=== PATIENT | female | born 1970 | race Two or more races ===

== ENCOUNTER 2019-06-05 08:23 | Day surgery (SDC) | payer BC ==
[~2019-06-05] VITALS: Ht 160 cm; Wt 54.4 kg
[2019-06-05] VITALS (8 sets, daily range): BP systolic 122–130; BP diastolic 67–88
[2019-06-05] MEDS ORDERED: SYNTHROID25 MCG ORAL (09:16)
[2019-06-05] MEDS ORDERED: ESTROSTEP FE-21 EACH PO (09:16)
[2019-06-05] MEDS ORDERED: QUETIAPINE FUMA25 MG ORAL (09:16)
[2019-06-05] MEDS ORDERED: CELEXA20 MG ORAL (09:16)
[2019-06-05] MEDS ORDERED: KLONOPIN0.5 MG ORAL (09:16)
--- NOTE | 2019-06-05 09:19 | Pre-Procedure Note/Attestation ---
Pre-Procedure Note/Attestation Complete Prior to Procedure Planned Procedure: not applicable Procedure Narrative: esophagogastroduodenoscopy and colonoscopy Indications for Procedure Pre-Operative Diagnosis: FHX of colon CA, anal fissure ,GERD Attestation I attest that I discussed the nature of the procedure; its benefits; risks and complications; and alternatives (and the risks and benefits of such alternatives ), prior to the procedure, with the patient (or the patient's legal signs and displays sales representative). I attest that, if there was a reasonable possibility of needing a blood transfusion, the patient (or the patient's legal signs and displays sales representative) was given the [facility] standardized written summary, pursuant to the Wily Jaspal Blood Safety Act ([place] Health and Safety Code # 1645, as amended). I attest that I re-evaluated the patient just prior to the surgery and that there has been no change in the patient's H&P, except as documented below: Thomas Varela MD Jun 05, 2019 09:19
--- NOTE | 2019-06-05 09:20 | Short Stay Surgery H&P ---
History of Present Illness History of Present Illness Chief Complaint fhx of colon CA, GERD HPI Maria De Jesus Moreno is a 48 year old female who was admitted on for Gerd And Screening Patient History PAST MEDICAL HISTORY: (1) GERD (gastroesophageal reflux disease) (2) Fibromyalgia Medication History Scheduled Citalopram Hydrobromide* (Celexa*), 20 MG ORAL DAILY, (Reported) Clonazepam* (Klonopin*), 0.5 MG ORAL HS, (Reported) Levothyroxine Sodium* (Synthroid*), 25 MCG ORAL DAILY, (Reported) Noreth A-Et Estra/Fe Fumarate (Estrostep Fe-28 Tablet), 1 EACH PO DAILY, ( Reported) Quetiapine Fumarate* (Seroquel*), 25 MG ORAL DAILY, (Reported) Review of Systems Cardiovascular: Reports: no symptoms Respiratory: Reports: no symptoms Skeletal: Reports: no symptoms Gastrointestinal: Reports: no symptoms Genitourinary: Reports: no symptoms Neurologic: Reports: no symptoms Endocrine: Reports: no symptoms Hematologic: Reports: no symptoms Physical Exam Vital Signs Last Vital Signs Date Time Temp Pulse Resp B/P (MAP) Pulse Ox O2 Delivery O2 Flow Rate FiO2 06/05/19 09:07 97.8 72 18 123/67 100 Room Air Labs Laboratory Tests Test 06/05/19 08:40 Urine HCG, Qualitative Negative (NEGATIVE) Skin: normal HENT: normal Heart: normal Lungs: normal Abdomen: normal Extremities: normal Plan Plan of Care esophagogastroduodenoscopy and colonoscopy Attestation Are the patient's medical conditions optimized for surgery? Attestation Response: yes Thomas Varela MD Jun 05, 2019 09:20
[2019-06-05] MEDS ORDERED: LR 1000ml 1,000 ML IVLG SCH (09:46)
--- NOTE | 2019-06-05 09:48 | Anethesia Preoperative Eval ---
Anesthesia Pre-op PMH/ROS General Date of Evaluation: Jun 05, 2019 Time of Evaluation: 09:41 Anesthesiologist: eder ASA Score: ASA 2 Mallampati Score Class I : Soft palate, uvula, fauces, pillars visible Class II: Soft palate, uvula, fauces visible Class III: Soft palate, base of uvula visible Class IV: Only hard plate visible Mallampati Classification: Class II Surgeon: janel Diagnosis: gerd/colon screening Surgical Procedure: egd/colonoscopy Anesthesia History: none Social History: smoking - nonsmoker Family History: no anesthesia problems Allergies: Coded Allergies: No Known Allergies (Unverified , 06/05/19) Medications: see eMAR Patient NPO?: Yes Past Medical History Endocrine: Reports: hypothyroidism PSxH Narrative: lumbar fusion Anesthesia Pre-op Phys. Exam Physician Exam Last Vital Signs Date Time Temp Pulse Resp B/P (MAP) Pulse Ox O2 Delivery O2 Flow Rate FiO2 06/05/19 09:16 Room Air 06/05/19 09:07 97.8 72 18 123/67 100 Constitutional: NAD Neurologic: CN 2-12 intact Cardiovascular: RRR Respiratory: CTA Gastrointestinal: S/NT/ND Airway Exam Mallampati Score: Class II MO: full Neck: flexible TMD: 2fb Anesthesia Pre-op A/P Labs Urine Test Test 06/05/19 08:40 Urine HCG, Qualitative Negative (NEGATIVE) Risk Assessment & Plan Assessment: asa2 Plan: mac Status Change Before Surgery: No Pre-Antibiotics Drug: Dipti Malone MD Jun 05, 2019 09:48
[2019-06-05] MEDS ORDERED: DiphenhydrAMINE 50mg/ml Inj IVP PRN (10:00)
[2019-06-05] MEDS ORDERED: Propofol 200mg/20ml IV ONE (10:00)
[2019-06-05] MEDS ORDERED: Midazolam 2mg/2ml Inj IVP PRN (10:00)
[2019-06-05] MEDS ORDERED: fentaNYL 100 mcg/2 mL IV PRN (10:00)
[2019-06-05] MEDS ORDERED: LR 1000ml ONE (10:00)
[2019-06-05] MEDS ORDERED: Lidocaine 1% MPF 10mg/ml 5ml ONE (10:00)
[2019-06-05] MEDS ORDERED: Atropine Inj 1mg/10ml Syr IV PRN (10:00)
--- NOTE | 2019-06-05 10:22 | Endoscopy Procedure Note ---
Endoscopy Procedure Note General Indication for Procedure: rectal bleed, GERD, FHX of GI canccers Procedures Performed: EGD, colonoscopy Operative Findings/Diagnosis: gastritis, one colon polyp Specimen: yes Pt Tolerated Procedure Well: Yes Estimated Blood Loss: none Anesthesia Anesthesiologist: sandhya Anesthesia: MAC Inserted Devices Implant(s) used?: No Quality Quality of Bowel Preparation: Good Did scope reach the cecum?: Yes Was there any complications?: No GI Core Measures 50 yrs or older w/o bx or poly: No 10yrs. F/U recommended: Yes If not recommended, why?: Above average risk 18 years or older w/prev. colo: No Thomas Varela MD Jun 05, 2019 10:21
--- NOTE | 2019-06-05 13:19 | Immediate Post-Op Evaluation ---
Immediate Post-Op Evalulation Immediate Post-Op Evalulation Procedure: egd/colonoscopy w/bx Date of Evaluation: Jun 05, 2019 Time of Evaluation: 10:37 IV Fluids: 300ml lr Blood Products: none Estimated Blood Loss: negligible Blood Pressure Systolic: 130 Blood Pressure Diastolic: 80 Pulse Rate: 71 Respiratory Rate: 18 O2 Sat by Pulse Oximetry: 99 Temperature (Fahrenheit): 97.7 Pain Score (1-10): 0 Nausea: No Vomiting: No Complications none Patient Status: awake, reacts, patent Hydration Status: adequate Drug: Dipti Malone MD Jun 05, 2019 13:19
--- NOTE | 2019-06-05 13:20 | 48 Hour Post Anesthesia Eval ---
Post Anesthesia Evaluation Procedure: egd/colonoscopy w/bx Date of Evaluation: Jun 05, 2019 Time of Evaluation: 10:39 Blood Pressure Systolic: 122 0: 88 Pulse Rate: 65 Respiratory Rate: 18 Temperature (Fahrenheit): 97.7 O2 Sat by Pulse Oximetry: 99 Airway: patent Nausea: No Vomiting: No Pain Intensity: 0 Hydration Status: adequate Cardiopulmonary Status: stable Mental Status/LOC: patient returned to baseline Post-Anesthesia Complications: none Follow-up care needed: N/A Dipti Silverio MD Jun 05, 2019 13:20
--- NOTE | 2019-06-05 16:00 | Procedure Note ---
DATE OF PROCEDURE: 06/05/2019 SURGEON: Thomas Varela M.D. PROCEDURE: 1. Upper endoscopy with biopsy. 2. Colonoscopy with snare polypectomy. ANESTHESIA: Per Dr. Ta. INSTRUMENT: Olympus adult flexible upper endoscope and colonoscope. REASON FOR PROCEDURE: The procedure, risks, benefits, and possible consequences, including hemorrhage, aspiration, perforation and infection, and alternative treatments, were explained to the patient/legal guardian by Dr. Thomas Varela and the patient/legal guardian understood and accepted these risks. INDICATION: Family history of gastric cancer, chronic GERD, anal fissures. Referred by a surgeon for colonoscopy. DESCRIPTION OF PROCEDURE: After informed consent was obtained and the patient was adequately sedated, Olympus upper endoscope was advanced from mouth into the second portion of the duodenum and retroflexion was performed in the stomach. The patient had diffuse gastritis. Random biopsy from antrum was obtained to rule out H. pylori infection. Otherwise, the rest of the upper endoscopic examination grossly within normal limit. At this time, the upper endoscope was retrieved and the patient was turned over for colonoscopy. First, rectal exam was performed, which was positive for internal hemorrhoid. Then, the scope was advanced from rectum into the cecum and then subsequently to terminal ileum. Quality of prep was good. The patient had one sessile polyp in the cecum measured roughly about 6 mm, removed with hot snare polypectomy technique. The rest of the examination grossly looked within normal limits. Retroflexion of rectum showed evidence of medium-sized internal hemorrhoids. SUMMARY OF FINDINGS: 1. Gastritis, status post biopsy. 2. One sessile polyp removed from cecum see above for details. 3. Internal hemorrhoids. RECOMMENDATIONS: Follow pathology and treat accordingly. We recommend repeat colonoscopy in 5 years. Thomas Varela M.D. DR: Jonelle JOB#: [id number] CC:
== END 2019-06-05 11:35 | disposition home or self-care (01) ==
LOC: GAS 08:23
DX: K21.9 Gastro-esophageal reflux disease without esophagitis (principal); Z80.0 Family history of malignant neoplasm of digestive organs; K29.50 Unspecified chronic gastritis without bleeding; D12.0 Benign neoplasm of cecum; K64.8 Other hemorrhoids; M79.7 Fibromyalgia; Z79.899 Other long term (current) drug therapy; E03.9 Hypothyroidism, unspecified; Z98.1 Arthrodesis status; K29.70 Gastritis, unspecified, without bleeding; B96.81 Helicobacter pylori [H. pylori] as the cause of diseases classified elsewhere
CPT/HCPCS: 43239; 45385; 81025; J2704; J7120; 94003; 94150